=== PATIENT | female | born 1955 | race Caucasian/White ===

== ENCOUNTER → 2019-05-21 | Emergency (ER) | payer OTHER, MEDICAID ==
[~2019-05-21] VITALS: Ht 157.5 cm; Wt 59.0 kg
[~2019-05-21] MED LIST: AMAN100C16 PO; DEUT12TA PO; DIPHENHYDRAMINE INJ 50 MG/ML VIAL IVP ONE; DIPHENHYDRAMINE INJ 50 MG/ML VIAL ONE; DIVA250T34 PO; LORazepam 2 MG/ML VIAL IVP ONE; NACL 0.9% 1,000 ML IV ONE; SENN-104 PO
[2019-05-21 12:38] VITALS: BP_SYST 115
--- NOTE | 2019-05-21 12:40 | NUR ---
PATIENT TO ER #6
--- NOTE | 2019-05-21 12:48 | NUR ---
Pt presents ED with caregiver c/o increased ALOC with history of Berenice's Breanne.
--- NOTE | 2019-05-21 13:10 | NUR ---
Patient presents to ER C/O ALOC Patient A&Ox4, aBIB daughter to ER via wheelchair, afebrile, skin pink and warm, denies N/V/D, denies pain. PT BIB by daughter with c/o ALOC and increase in falls, "x4 in last 6 weeks" hx of Hughes-Madsen.
[2019-05-21 13:24] LABS: BASOPHILS # (AUTO) 0.1 K/uL (0.0-0.2); EOSINOPHILS # (AUTO) 0.1 K/uL (0.0-0.4); EOSINOPHILS % (AUTO) 1.2 % (0.0-4.0); HEMATOCRIT 36.6 % (36-48); HEMOGLOBIN 12.4 g/dL (12.0-16.0); LYMPHOCYTES # (AUTO) 0.9 K/uL (1.0-5.5); LYMPHOCYTES % (AUTO) 11.3 % (20.5-51.5); MEAN CORPUSCULAR HEMOGLOBIN 33 pg (27-31); MEAN CORPUSCULAR HGB CONC 34 % (32-36); MEAN CORPUSCULAR VOLUME 97 fL (79.0-98.0); MONOCYTES % (AUTO) 12.2 % (1.7-9.3); NEUTROPHILS # (AUTO) 5.8 K/uL (1.8-7.7); NEUTROPHILS % (AUTO) 74.3 % (40.0-70.0); PLATELET COUNT (AUTO) 291 K/uL (130-430); RED BLOOD CELL COUNT(AUTO) 3.78 MIL/uL (4.2-6.2); RED CELL DISTRIBUTION WIDTH 13.1 % (9.0-15.0); WHITE BLOOD COUNT (AUTO) 7.9 K/uL (4.8-10.8)
[2019-05-21 13:26] LABS: CALCIUM 8.4 mg/dL (8.4-11.0); CREATININE 0.63 mg/dL (0.55-1.30); POTASSIUM 3.8 mmol/L (3.5-5.1)
[2019-05-21 13:45] LABS: ALBUMIN 3.1 g/dL (3.4-4.8); TOTAL BILIRUBIN 0.3 mg/dL (0.0-1.0)
--- NOTE | 2019-05-21 14:40 | NUR ---
PT to CT with staff via katrin
--- NOTE | 2019-05-21 14:45 | NUR ---
# 16 FR In and Out catheter with use of sterile technique. Immediate return of 30 ml pale urine noted. Urine sample collected and sent to lab. Pt tolerated procedure . Patient unable to toilet self.
[2019-05-21 15:09] LABS: BILIRUBIN,URINE NEGATIVE (NEGATIVE); BLOOD, URINE 1+ (NEGATIVE); CLARITY/URINE CLEAR (CLEAR); COLOR,URINE YELLOW (YELLOW); GLUCOSE,URINE NEGATIVE (NEGATIVE); KETONES,URINE NEGATIVE (NEGATIVE); LEUKOCYTE ESTERASE ,URINE NEGATIVE (NEGATIVE); NITRITE, URINE NEGATIVE (NEGATIVE); PH,URINE 7.5 (5.0-8.0); PROTEIN URINE NEGATIVE (NEGATIVE); UROBILINOGEN,URINE 0.2 (0.2-1.0)
[2019-05-21 15:25] LABS: BACTERIA,URINE None Seen /HPF (None Seen); WBC,URINE NONE SEEN /HPF (0-3)
[2019-05-21 15:26] LABS: MUCUS,URINE None Seen /LPF (None Seen)
[2019-05-21 15:30] VITALS: BP_SYST 118
== END | disposition still patient (30) ==
LOC: SED 12:24
DX: G10 Huntington's disease (principal); R41.82 Altered mental status, unspecified; Z79.899 Other long term (current) drug therapy
CPT/HCPCS: 36415; 70450; 71045; 72125; 80053; 81000; 83605; 85025; 87040; 96361; 96374; 96375; 99285; J1200; J2060; J7030

== ENCOUNTER 2019-05-22 06:38 | Inpatient (IN) | payer OTHER, MEDICAID ==
[~2019-05-22] VITALS: Ht 157.5 cm; Wt 59.0 kg
[~2019-05-22 06:38] MED LIST changes: -DIPHENHYDRAMINE INJ 50 MG/ML VIAL IVP ONE; -DIPHENHYDRAMINE INJ 50 MG/ML VIAL ONE; -LORazepam 2 MG/ML VIAL IVP ONE; -NACL 0.9% 1,000 ML IV ONE
[2019-05-22 06:43] VITALS: BP_SYST 121
--- NOTE | 2019-05-22 06:46 | NUR ---
Patient triaged and placed on EMS gurney. VSS and patient appears in no acute distress at this time. Accompanied by ems, awaiting available bed, and MD notified of need for MSE.
--- NOTE | 2019-05-22 07:03 | NUR ---
Patient to ER bed 07 for evaluation. Side rails up.
[2019-05-22] MEDS ORDERED: DIPHENHYDRAMINE INJ 50 MG/ML VIAL IM ONE (07:30)
[2019-05-22] MEDS ORDERED: HALOPERIDOL LACTATE 5 MG/ML VIAL IM ONE (07:30)
[2019-05-22] MEDS ORDERED: LORazepam 2 MG/ML VIAL IM ONE (07:30)
--- NOTE | 2019-05-22 08:00 | NUR ---
PT AGITATED ATTEMPTING TO CLIMB OUT OF BED AND FIGHT STAFF. PT WAS GIVEN MEDICATION FOR SAFETY.
[2019-05-22 08:39] LABS: BASOPHILS # (AUTO) 0.1 K/uL (0.0-0.2); BASOPHILS % (AUTO) 0.7 % (0.0-2.0); EOSINOPHILS # (AUTO) 0.1 K/uL (0.0-0.4); EOSINOPHILS % (AUTO) 1.5 % (0.0-4.0); HEMATOCRIT 40.5 % (36-48); HEMOGLOBIN 13.5 g/dL (12.0-16.0); LYMPHOCYTES # (AUTO) 1.2 K/uL (1.0-5.5); LYMPHOCYTES % (AUTO) 15.9 % (20.5-51.5); MEAN CORPUSCULAR HEMOGLOBIN 32 pg (27-31); MEAN CORPUSCULAR HGB CONC 33 % (32-36); MEAN CORPUSCULAR VOLUME 97 fL (79.0-98.0); MONOCYTES # (AUTO) 0.9 K/uL (0.0-1.0); MONOCYTES % (AUTO) 11.5 % (1.7-9.3); NEUTROPHILS # (AUTO) 5.5 K/uL (1.8-7.7); NEUTROPHILS % (AUTO) 70.4 % (40.0-70.0); PLATELET COUNT (AUTO) 275 K/uL (130-430); RED BLOOD CELL COUNT(AUTO) 4.18 MIL/uL (4.2-6.2); RED CELL DISTRIBUTION WIDTH 12.7 % (9.0-15.0); WHITE BLOOD COUNT (AUTO) 7.8 K/uL (4.8-10.8)
[2019-05-22 08:46] LABS: CALCIUM 8.4 mg/dL (8.4-11.0); CREATININE 0.46 mg/dL (0.55-1.30); POTASSIUM 3.5 mmol/L (3.5-5.1)
[2019-05-22 08:51] LABS: ALBUMIN 3.2 g/dL (3.4-4.8)
[2019-05-22] MEDS ORDERED: MUPIROCIN 2% TOPICAL OINTMENT 22 GM NS PRN (09:00)
[2019-05-22] MEDS ORDERED: ZOLPIDEM TARTRATE 5 MG TABLET PO PRN (09:00)
[2019-05-22] MEDS ORDERED: HEPARIN SODIUM,PORCINE 5000 UNITS/ML VIAL SUBCUT ONE (09:00)
[2019-05-22] MEDS ORDERED: DOCUSATE SODIUM 100 MG CAPSULE PO PRN (09:00)
[2019-05-22] MEDS ORDERED: MORPHINE 2 MG/ML INJ. SYRINGE IVP PRN ×2 (09:00)
[2019-05-22] MEDS ORDERED: DIVALPROEX SODIUM 250 MG TABLET(DEPAKOTE) PO ONE (09:00)
[2019-05-22] MEDS ORDERED: POTASSIUM CHLORIDE 20 MEQ TAB.PRT.SR PO PRN (09:00)
[2019-05-22] MEDS ORDERED: MAGNESIUM SULFATE 50 ML IV PRN (09:00)
[2019-05-22] MEDS ORDERED: ACETAMINOPHEN 325 MG TABLET PO PRN (09:00)
[2019-05-22] MEDS ORDERED: ONDANSETRON HCL 4 MG/2 ML VIAL IVP PRN (09:00)
[2019-05-22] MEDS ORDERED: DIPHENHYDRAMINE INJ 50 MG/ML VIAL IVP PRN (09:30)
--- NOTE | 2019-05-22 10:00 | NUR ---
PT RESTING IN BED CALM AND COOPERATIVE AT THIS TIME. VSS NO DISTRESS NOTED.
--- NOTE | 2019-05-22 10:58 | NUR ---
Consultation Paged Reason for Consultation: PSYCHOSIS AFTER AMNATADINE, HS OF HUNTINGTONS'S DISEASE Was consult called: Y Person who was notified: MAHESH/DR MORTON Consulting Physician: DR Shawn MORTON Engine Research Engineer Phone Number [phone] Ordering Physician: DR GARAY
--- NOTE | 2019-05-22 11:15 | NUR ---
ADMISSION NOTE Received patient from ER via katrin, received report from Billy HOYOS. Patient admitted with diagnosis of acute psychosis. Patient oriented to hospital routine, call light, toileting and safety-patient verbalized understanding.
--- NOTE | 2019-05-22 11:20 | NUR ---
Patient will be admitted to care of [facility]. Admitted to TELE unit. Will go to room 121B. Belongings list completed. Complete and up to date summary report printed. SBAR report to be given at bedside with opportunity for questions.
--- NOTE | 2019-05-22 11:30 | NUR ---
INITIAL NOTE Patient resting in the bed. No acute distress. Lethargic at this time but arousable.Skin warm and dry to touch. IV intact to LFA, no redness, no swelling, patent. Daughter at bedside to provide the patient's information. Sitter at bedside. Safety measure maintained. Call light within reached. Bed locked in low position, side rails up, bed alarm on. Will continue to monitor.
[2019-05-22 11:43] VITALS: BP_SYST 113
[2019-05-22 12:00] VITALS: BP_SYST 113
[2019-05-22] MEDS: NACL 0.9% 1,000 ML IV SCH ×2 (12:27→21:14)
--- NOTE | 2019-05-22 12:45 | NUR ---
REFUSED HEPARIN Patient sleeping at this time. Daughter at bedside. Refused Heparin, explained the indication and possible side effect, verbally understanding. Per daughter the patient had multiple falls in the past due to unsteady gait and do not want the patient has the risk for bleeding and bruising. Will continue to monitor.
--- NOTE | 2019-05-22 14:12 | NUR ---
CONSULTATION PAGED/CALLED Reason for Consultation: [] PSYCHOSIS Person Who was Notified: [] ERNST Consulting Physician: [] DR VALE Molding Technician Specialty: [] PSYCH Ordering Physician: [] DR GARAY BROOMMAKER FOR DR RANGEL
--- NOTE | 2019-05-22 14:45 | NUR ---
SLEEPING Patient remained sleeping. No acute distress. IV intact, IVF infusing well. Safety measure maintained. Call light within reached. Bed locked in low position, side rails up, bed alarm on. Sitter at bedside. Continue to monitor.
[2019-05-22 16:00] VITALS: BP_SYST 106
--- NOTE | 2019-05-22 16:30 | NUR ---
BATHROOM Sitter and patient's son assisted patient to get up and ambulated to bathroom. Patient ambulated with unsteady gait. Void with yellow urine, no hematuria/dysuria noted. Assisted bed to bed. Safety measure maintained. Call light within reached. Bed locked in low position, side rails up, bed alarm on. Sitter continue to sit at bedside.
--- NOTE | 2019-05-22 18:00 | NUR ---
HOME MED AUSJACQUELINE BROUGHT BY FAMILY, SENT TO PHARMACY TO VERIFY IT.
--- NOTE | 2019-05-22 18:50 | NUR ---
CLOSING NOTE Patient resting in the bed with eye closing. No acute distress. IV intact, no redness, no swelling, no drainage. On NS at 70ml/hr, infusing well. Sitter at bedside. Safety measure maintained. Call light within reached. Bed locked in low position, side rails up, bed alarm on. Will endorse to night nurse.
[2019-05-22 20:00] VITALS: BP_SYST 147
[2019-05-22] MEDS: HEPARIN SODIUM,PORCINE 5000 UNITS/ML VIAL SUBCUT SCH (21:00)
[2019-05-22] MEDS: DIVALPROEX SODIUM 250 MG TABLET(DEPAKOTE) PO SCH (21:12)
--- NOTE | 2019-05-22 22:23 | NUR ---
PATIENT RESTING AT THIS TIME. TURNED REPOSITIONED Q2. NO ACUTE DISTRESS NOTED. WILL CONTINUE TO MONITOR.
[2019-05-23] MEDS: LORazepam 2 MG/ML VIAL IVP PRN (04:21)
--- NOTE | 2019-05-23 06:14 | NUR ---
DR. LEWIS HERE TO SEE THE PATIENT. ATIVAN GIVEN FOR AGITATION. SLEPT MOST OF THE NIGHT. WILL CONTINUE TO MONITOR.
[2019-05-23 07:24] VITALS: BP_SYST 134
--- NOTE | 2019-05-23 07:30 | NUR ---
OPENING NOTES: RECEIVED PATIENT FROM INSIDE CONTRACTOR SALES NURSE. PATIENT IS ASLEEP LAYING DOWN IN BED. SITTER AT BEDSIDE. PATIENT IS TOLERATING OXYGEN AT ROOM AIR WITH NO SIGNS OF DISTRESS OR SHORTNESS OF BREATH NOTED. IV SITE IS PATENT WITH NO SIGNS OF INFILTRATION AND RUNNING FLUIDS ORDERED. PATIENT IN STABLE CONDITION. SAFETY, FALL, AND ASPIRATION PRECAUTIONS ARE IN PLACE. BED LOCKED IN LOWEST POSITION WITH CALL LIGHT IN REACH. WILL CONTINUE TO MONITOR PATIENT FOR ANY CHANGES.
[2019-05-23] MEDS: HEPARIN SODIUM,PORCINE 5000 UNITS/ML VIAL SUBCUT SCH ×2 (09:00→21:00)
[2019-05-23] MEDS: DIVALPROEX SODIUM 250 MG TABLET(DEPAKOTE) PO SCH ×2 (09:19→21:28)
[2019-05-23] MEDS: ARIPiprazole 2 MG TAB PO SCH (09:19)
--- NOTE | 2019-05-23 10:00 | NUR ---
MD ROUNDS: DR. RANGEL MAKING HIS ROUNDS. AWARE OF PATIENT'S CONDITION. NEW ORDERS GIVEN.
--- NOTE | 2019-05-23 10:08 | NUR ---
RN ROUNDS: PATIENT IS AWAKE AND ALERT x1 LAYING DOWN IN BED. FAMILY AT BEDSIDE. PATIENT DENIES ANY PAIN AT THE MOMENT. NO SIGNS OF DISTRESS OR SHORTNESS OF BREATH NOTED. PATIENT IN STABLE CONDITION. EDUCATION REGARDING PATIENT'S MEDICATIONS WAS GIVEN TO FAMILY MEMBER. WILL CONTINUE TO MONITOR PATIENT FOR ANY CHANGES.
--- NOTE | 2019-05-23 10:13 | NUR ---
Nutrition Update Chinmay Scale 13 noted. Pt admitted for acute psychosis. Diet: regular BMI: 23.8 kg/m2 RD to follow per nutrition care standards.
[2019-05-23] MEDS: NACL 0.9% 1,000 ML IV SCH (11:16)
[2019-05-23 11:19] VITALS: BP_SYST 118
[2019-05-23 12:09] LABS: BASOPHILS % (AUTO) 0.6 % (0.0-2.0); EOSINOPHILS # (AUTO) 0.3 K/uL (0.0-0.4); HEMATOCRIT 41.3 % (36-48); HEMOGLOBIN 13.7 g/dL (12.0-16.0); LYMPHOCYTES # (AUTO) 1.5 K/uL (1.0-5.5); LYMPHOCYTES % (AUTO) 22.1 % (20.5-51.5); MEAN CORPUSCULAR HEMOGLOBIN 32 pg (27-31); MEAN CORPUSCULAR HGB CONC 33 % (32-36); MEAN CORPUSCULAR VOLUME 97 fL (79.0-98.0); MONOCYTES # (AUTO) 0.7 K/uL (0.0-1.0); MONOCYTES % (AUTO) 9.7 % (1.7-9.3); NEUTROPHILS # (AUTO) 4.3 K/uL (1.8-7.7); NEUTROPHILS % (AUTO) 62.6 % (40.0-70.0); PLATELET COUNT (AUTO) 281 K/uL (130-430); RED BLOOD CELL COUNT(AUTO) 4.24 MIL/uL (4.2-6.2); RED CELL DISTRIBUTION WIDTH 12.6 % (9.0-15.0); WHITE BLOOD COUNT (AUTO) 6.9 K/uL (4.8-10.8)
[2019-05-23 12:14] LABS: CREATININE 0.48 mg/dL (0.55-1.30); PHOSPHORUS 3.8 mg/dL (2.7-4.5); POTASSIUM 3.5 mmol/L (3.5-5.1)
--- NOTE | 2019-05-23 12:17 | NUR ---
RN ROUNDS: PATIENT IS AWAKE AND ALERT x1 LAYING DOWN IN BED. FAMILY AT BEDSIDE. SITTER AT BEDSIDE. NO SIGNS OF DISTRESS OR SHORTNESS OF BREATH NOTED. PATIENT IN STABLE CONDITION. WILL CONTINUE TO MONITOR PATIENT FOR ANY CHANGES.
--- NOTE | 2019-05-23 14:37 | NUR ---
RN ROUNDS: PATIENT IS ASLEEP LAYING DOWN IN BED. SITTER AND FAMILY AT BEDSIDE. NO SIGNS OF DISTRESS OR SHORTNESS OF BREATH NOTED. PATIENT IN STABLE CONDITION. WILL CONTINUE TO MONITOR PATIENT FOR ANY CHANGES.
--- NOTE | 2019-05-23 15:58 | NUR ---
Electrical Linesworker: met with pt to conduct a DCPA and Social Work assessment. FUNERAL DIRECTOR/EMBALMER introduced self to pts. daughter who was visiting with her mom. said her mom was sleeping and was happy to answer questions for FUNERAL DIRECTOR/EMBALMER. 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 She also said she wants her mom/pt to return back to her B&C, [facility]. It is a B&C but they also have hospice. Daughter stated she made sure the B&C knows her mom is not a hospice pt. She stated her mom feels anxious because of her illness. It makes her mom feel like she is dying from her illness because she is so sick. FUNERAL DIRECTOR/EMBALMER thanked for her assistance and will remain available as needed.
[2019-05-23 16:14] VITALS: BP_SYST 157
--- NOTE | 2019-05-23 16:20 | NUR ---
RN ROUNDS: PATIENT IS AWAKE AND ALERT x1 LAYING DOWN IN BED. SITTER AND FAMILY AT BEDSIDE. NO SIGNS OF DISTRESS OR SHORTNESS OF BREATH NOTED. PATIENT IN STABLE CONDITION. WILL CONTINUE TO MONITOR PATIENT FOR ANY CHANGES.
--- NOTE | 2019-05-23 18:40 | NUR ---
CLOSING NOTES: PATIENT IS AWAKE AND ALERT x1 LAYING DOWN IN BED. SITTER AT BEDSIDE. PATIENT IS TOLERATING OXYGEN AT ROOM AIR WITH NO SIGNS OF DISTRESS OR SHORTNESS OF BREATH NOTED. IV SITE IS PATENT WITH NO SIGNS OF INFILTRATION AND RUNNING FLUIDS ORDERED. PATIENT IN STABLE CONDITION. SAFETY, FALL, AND ASPIRATION PRECAUTIONS REMAINED IN PLACE THROUGHOUT THE SHIFT. BED LOCKED IN LOWEST POSITION WITH CALL LIGHT IN REACH. WILL ENDORSE PATIENT CARE TO ONCOMING MANAGER DISTRIBUTION CENTER NURSE.
[2019-05-23 20:00] VITALS: BP_SYST 106
--- NOTE | 2019-05-23 23:24 | NUR ---
PATIENT IN BED. TURNED REPOSITIONED Q2. NO ACUTE DISTRESS NOTED. COMPLIANT WITH MEDICATIONS. WILL CONTINUE TO MONITOR.
[2019-05-24] MEDS: LORazepam 2 MG/ML VIAL IVP PRN ×4 (00:38→21:59)
--- NOTE | 2019-05-24 00:43 | NUR ---
PATIENT ANXIOUS PRN GIVEN PER PHYSICIAN'S ORDER. WILL CONTINUE TO MONITOR.
[2019-05-24] MEDS: NACL 0.9% 1,000 ML IV SCH ×2 (03:54→18:51)
[2019-05-24 06:40] LABS: CALCIUM 7.9 mg/dL (8.4-11.0); CREATININE 0.36 mg/dL (0.55-1.30); PHOSPHORUS 2.8 mg/dL (2.7-4.5); POTASSIUM 3.3 mmol/L (3.5-5.1)
[2019-05-24 06:41] LABS: BASOPHILS # (AUTO) 0.1 K/uL (0.0-0.2); BASOPHILS % (AUTO) 0.6 % (0.0-2.0); EOSINOPHILS # (AUTO) 0.2 K/uL (0.0-0.4); EOSINOPHILS % (AUTO) 2.4 % (0.0-4.0); HEMATOCRIT 39.1 % (36-48); HEMOGLOBIN 13.4 g/dL (12.0-16.0); LYMPHOCYTES # (AUTO) 0.9 K/uL (1.0-5.5); LYMPHOCYTES % (AUTO) 10.4 % (20.5-51.5); MEAN CORPUSCULAR HEMOGLOBIN 33 pg (27-31); MEAN CORPUSCULAR HGB CONC 34 % (32-36); MEAN CORPUSCULAR VOLUME 97 fL (79.0-98.0); MONOCYTES # (AUTO) 0.6 K/uL (0.0-1.0); NEUTROPHILS # (AUTO) 6.7 K/uL (1.8-7.7); NEUTROPHILS % (AUTO) 79.6 % (40.0-70.0); PLATELET COUNT (AUTO) 276 K/uL (130-430); RED BLOOD CELL COUNT(AUTO) 4.05 MIL/uL (4.2-6.2); RED CELL DISTRIBUTION WIDTH 12.7 % (9.0-15.0); WHITE BLOOD COUNT (AUTO) 8.4 K/uL (4.8-10.8)
--- NOTE | 2019-05-24 06:56 | NUR ---
PATIENT AGITATED AND ATTEMPTING TO GET OUT OF BED. PRN GIVEN.
--- NOTE | 2019-05-24 07:30 | NUR ---
OPENING NOTES: Patient resting in bed. No acute respiration distress noted. No shortness of breath noted. I.V site is patent without signs of infiltration. Running 0.9% normal saline as ordered. place call light within reach and bed in the lowest position. Will continue to monitor. Addendum: 05/24/19 at 1831 by Cyrus Calvin RN sitter at the bed side.
[2019-05-24 07:35] VITALS: BP_SYST 141
[2019-05-24] MEDS: HEPARIN SODIUM,PORCINE 5000 UNITS/ML VIAL SUBCUT SCH ×2 (09:00→20:05)
[2019-05-24] MEDS: ARIPiprazole 2 MG TAB PO SCH (09:24)
[2019-05-24] MEDS: DIVALPROEX SODIUM 250 MG TABLET(DEPAKOTE) PO SCH ×2 (09:24→21:50)
--- NOTE | 2019-05-24 10:20 | NUR ---
Dc Telemetry: Dc telemetry and downgraded patient to medical surgical floor as ordered.
[2019-05-24 12:00] VITALS: BP_SYST 138
--- NOTE | 2019-05-24 12:30 | NUR ---
Lunch Daughter assisted patient to have lunch. Patient ate lunch well.
--- NOTE | 2019-05-24 14:30 | NUR ---
Bedside Commode placed patient to bedside commode with daughter assisting. void and had bowel movement. Care rendered.
--- NOTE | 2019-05-24 15:09 | NUR ---
Dietitian Recommendations * Recommend regular diet w/ Ensure Enlive TID (ONS provides 1050 kcal/day, 60 gm protein/day) ANDREW FERREIRA Please refer to Nutrition Assessment for details. Addendum: 05/24/19 at [address] Amended: Links added.
[2019-05-24 16:30] VITALS: BP_SYST 119
--- NOTE | 2019-05-24 18:36 | NUR ---
CLOSING NOTE Patient sleeping in bed. Daughter at the bedside. Call light within reach and placed bed in the lowest position. Put bed alarm on. Normal saline is running with tolerant well. I.V site is intact without infiltration. Safety measure rendered. No acute respiratory distress noted.
--- NOTE | 2019-05-24 18:40 | NUR ---
ADD NOTES Talked with daughter and she requested that to try taking a sample when patient uses commode at the bed side. Daughter talked that if not successful, try to use straight catheter.
--- NOTE | 2019-05-24 19:09 | NUR ---
received with daughter at bedside and asleep with no distress,with the same ivf on, on close observation 1 to 1.
--- NOTE | 2019-05-24 19:18 | NUR ---
daughter asked about the heparin dose as the day shift nurse report that the daughter refused heparin and said no heparin because mom has history of frequent falls and will inform the physician. asked if it ius okay for sequentials and said okay as alternative to heparin. with orders for urinalysis and okay to do straight catheterization but said try the bedside commode first and or offer bedpan before the Straight catheterization and if ever straight catheterization done needs some medication tomake her sleep. noted.
--- NOTE | 2019-05-24 19:34 | NUR ---
voided,offered bedpan but unable to ,.voided freely.to the diaper, cleaned and kept dry.
[2019-05-24 20:03] VITALS: BP_SYST 103
--- NOTE | 2019-05-24 20:06 | NUR ---
heparin not given pre daughters and family request, sleeping intermittently.will inform Dr Chowdhury in am and ask for alternative dvt prophylaxis ,
--- NOTE | 2019-05-24 21:28 | NUR ---
asleep.,medication not given ,will wait for her to be awake,
--- NOTE | 2019-05-24 21:50 | NUR ---
awake and wants to go to the bathroom and noted patient combative,.hitting and refused to follow instruction. assited to the bedside commode with difficulty as patient s tries to push and hits. able to place on the bedside commode and voided freely. assited back to bed. medications po due given and tolerated well. lorazepam dose given as patient is getting agitated and attempting to get out of bet, hitting and unable to follow instructions,. vital signs ck=hecked and recorded.kept cleaned and dry
[2019-05-24 22:00] VITALS: BP_SYST 127
--- NOTE | 2019-05-24 22:23 | NUR ---
on one on one sitter
--- NOTE | 2019-05-24 22:55 | NUR ---
asleep. with the same ivf on.
[2019-05-24 23:33] VITALS: BP_SYST 133
[2019-05-25 00:42] VITALS: BP_SYST 127
--- NOTE | 2019-05-25 01:28 | NUR ---
awake and cleaned and kept dry. Addendum: 05/25/19 at 0130 by Twenty six ornamental metal erector will continue to monitor Addendum: 05/25/19 at 0155 by Twenty six ornamental metal erector back to sleep
--- NOTE | 2019-05-25 03:33 | NUR ---
asleep and wake up and is restless and unable to keep still.
[2019-05-25] MEDS: LORazepam 2 MG/ML VIAL IVP PRN (03:40)
[2019-05-25 04:00] VITALS: BP_SYST 133
--- NOTE | 2019-05-25 04:23 | NUR ---
patient is restless and attempts to get out of bed ,goes aroubnd the bed and unable to follow limits or instructions. vital signs checked ,lorazepam 2 mg ivp given for restlessness and agitation, placed on oxygen at 2liters as patient is receiving a high dose of lorazepam,will infom physician in am.
--- NOTE | 2019-05-25 07:20 | NUR ---
OPENING NOTES: Patient resting in bed. Sitter is at bedside. Running 2L of O2 through nasal canula. I.V site is patent without signs of infiltration. Running 0.9% normal saline as ordered. No shortness of breath noted or acute respiration distress noted. Place call light within reach and bed in the lowest position. Will continue to monitor.
[2019-05-25 07:35] VITALS: BP_SYST 138
[2019-05-25 07:57] LABS: CALCIUM 7.8 mg/dL (8.4-11.0); CREATININE 0.44 mg/dL (0.55-1.30)
--- NOTE | 2019-05-25 08:28 | NUR ---
report given to the day shift rn that the patient was placed on oxygen at 2l nasal cannula because when given lorazepam dose the breathing becomes less that 16 and shallow. patient breathing return to normal after
--- NOTE | 2019-05-25 09:00 | NUR ---
Rounds Daughter came and assisted patient to have breakfast. Patient was not able to have breakfast at this time.
[2019-05-25] MEDS: ARIPiprazole 2 MG TAB PO SCH (09:17)
[2019-05-25] MEDS: DIVALPROEX SODIUM 250 MG TABLET(DEPAKOTE) PO SCH (09:17)
[2019-05-25] MEDS ORDERED: LORazepam 2 MG/ML VIAL IVP PRN (09:45)
[2019-05-25] MEDS: NACL 0.9% 1,000 ML IV SCH (09:48)
[2019-05-25 10:02] LABS: BILIRUBIN,URINE NEGATIVE (NEGATIVE); CLARITY/URINE CLEAR (CLEAR); COLOR,URINE YELLOW (YELLOW); GLUCOSE,URINE NEGATIVE (NEGATIVE); KETONES,URINE NEGATIVE (NEGATIVE); LEUKOCYTE ESTERASE ,URINE NEGATIVE (NEGATIVE); NITRITE, URINE NEGATIVE (NEGATIVE); PH,URINE 8.5 (5.0-8.0); PROTEIN URINE NEGATIVE (NEGATIVE); UROBILINOGEN,URINE 0.2 (0.2-1.0)
[2019-05-25 10:03] LABS: BLOOD, URINE TRACE (NEGATIVE)
[2019-05-25 10:08] LABS: BACTERIA,URINE FEW /HPF (None Seen); RBC,URINE 0-3 /HPF (0-3); TRIPLE PHOSPHATE CRYSTAL,UR 0-10 /HPF (None Seen); WBC,URINE 0-3 /HPF (0-3)
[2019-05-25] MEDS ORDERED: ARIP2TAB3 PO (10:09)
--- NOTE | 2019-05-25 10:14 | NUR ---
MD ROUNDS Dr. Pacheco came for rounds and spoke with daughter at bedside regarding plan of care with orders DC back to [facility] as ordered. Ashley, interstate planner aware of discharge plan.
--- NOTE | 2019-05-25 11:24 | NUR ---
Discharge Planning I was notified that patient could return to her board and care. Spoke with patient's daughter, . She will transport patient back to [facility] and is available any time. Nurse to call when discharge paperwork ready. Contact for [facility]: Veronica Rodgersquis francisco javier [phone] f [phone]. Left a voicemail message. Addendum: 05/25/19 at 1314 by Ashley Hutchison LCSW Spoke with Precious HOYOS. Patient is very drowsy and unsafe to transport via car or wheelchair. She will get an order from for ambulance transport. Faxed patient's med rec discharge to Veronica at [facility]. Addendum: 05/25/19 at 1400 by Ashley Hutchison LCSW Received order to transfer patient by ambulance for patient safety. Phoned Precious HOYOS. Transfer okay for 16:00. Phoned daughter, , and notified her of ambulance transfer. Agreed. As per , address of board and care is: [place], [address]. Left voicemail for [facility] nursing administrator, Veronica, regarding transfer at 16:00. [facility], , for 16:00.
[2019-05-25] MEDS ORDERED: LORA-259 PO (11:38)
[2019-05-25 12:00] VITALS: BP_SYST 124
[2019-05-25 15:13] VITALS: BP_SYST 158
--- NOTE | 2019-05-25 16:31 | NUR ---
DC Patient transported back to [facility] and care. Got signs from daughter on discharge paper and gave discharge paper to staff of [facility] ambulance service. Precious spoke with Aracely Streeter, RN trust administrator at [facility]. Patient was transferred by [facility] due to unsafe to transport via car or wheelchair. Patient is in stable condition during transportation.
--- NOTE | 2019-05-25 17:05 | NUR ---
HOME MEDS Patient's daughter will machine operator hop picker her mother's medication.
--- NOTE | 2019-05-25 18:10 | NUR ---
Home medication given to Raisa, patient's daughter.
--- NOTE | 2019-05-29 11:38 | NUR ---
Discharge Follow Up Phone Call Product Support Sales Representative phoned and left a voicemail message on 05/28/19. EMERGENCY TECHNICIAN phoned patient's daughter, Patsy, , today. Patient is doing well at her board and care, other than she began coughing. They filled her new prescriptions and patient is taking her medications as directed. She has a follow up appointment made with neurologist, Dr Powell. No questions or concerns.
== END 2019-05-25 16:31 | disposition home or self-care (01) | DRG 56 ==
LOC: SED 06:38 → SMU 08:55 → STU 11:17 → SMU 05-24 13:11
PROVIDERS: ADMIT General Practice; ATTEND General Practice
DX: G10 Huntington's disease (principal); G92 Toxic encephalopathy; F23 Brief psychotic disorder; E44.1 Mild protein-calorie malnutrition; G20 Parkinson's disease; R26.9 Unspecified abnormalities of gait and mobility; Z90.49 Acquired absence of other specified parts of digestive tract; T42.8X5A Adverse effect of antiparkinsonism drugs and other central muscle-tone depressants, initial encounter; Z79.899 Other long term (current) drug therapy; Y92.89 Other specified places as the place of occurrence of the external cause; Z68.23 Body mass index [BMI] 23.0-23.9, adult
CPT/HCPCS: 36415; 80048; 80053; 80164-TC; 81000-TC; 83735-TC; 84100-TC; 85025; 96372; 97112-GP; 97530-GP; 99285; A5061; G0378; J1200; J1630; J1644; J2060; J2270; J3475; J7030

== ENCOUNTER 2019-06-24 19:03 | Emergency (ER) | payer OTHER, MEDICAID ==
[~2019-06-24] VITALS: Ht 162.6 cm; Wt 59.0 kg
[~2019-06-24 19:03] MED LIST changes: -AMAN100C16 PO; +ARIP2TAB3 PO; +LORA-259 PO
--- NOTE | 2019-06-24 19:20 | NUR ---
Patient brought in by daughter from an assisted living facility. Patient fell off her bed at the assisted living facility and hit her left cheek. Patients left cheek is swollen. Patient is togolese speaking. Patient has a history of subarachnoid hematomas and huntingtons disease. Patients baseline is alert and oriented x2.
[2019-06-24 19:37] VITALS: BP_SYST 105
--- NOTE | 2019-06-24 19:43 | NUR ---
ER Dr. Turk at bedside examining patient.
--- NOTE | 2019-06-24 20:03 | NUR ---
# 20 gauge angiocath placed to LAC. Use of asceptic technique. Opsite placed over site. Blood return noted. Blood for lab drawn from site. Flushed with 10 cc of normal saline. No evidence of infiltration noted. Patient tolerated well.
[2019-06-24 20:12] LABS: BASOPHILS % (AUTO) 0.6 % (0.0-2.0); EOSINOPHILS # (AUTO) 0.1 K/uL (0.0-0.4); EOSINOPHILS % (AUTO) 1.8 % (0.0-4.0); HEMATOCRIT 37.5 % (36-48); HEMOGLOBIN 12.7 g/dL (12.0-16.0); LYMPHOCYTES # (AUTO) 1.9 K/uL (1.0-5.5); LYMPHOCYTES % (AUTO) 25.2 % (20.5-51.5); MEAN CORPUSCULAR HEMOGLOBIN 33 pg (27-31); MEAN CORPUSCULAR HGB CONC 34 % (32-36); MEAN CORPUSCULAR VOLUME 97 fL (79.0-98.0); MONOCYTES # (AUTO) 0.9 K/uL (0.0-1.0); MONOCYTES % (AUTO) 11.7 % (1.7-9.3); NEUTROPHILS # (AUTO) 4.5 K/uL (1.8-7.7); NEUTROPHILS % (AUTO) 60.7 % (40.0-70.0); PLATELET COUNT (AUTO) 269 K/uL (130-430); RED BLOOD CELL COUNT(AUTO) 3.88 MIL/uL (4.2-6.2); RED CELL DISTRIBUTION WIDTH 13.2 % (9.0-15.0); WHITE BLOOD COUNT (AUTO) 7.4 K/uL (4.8-10.8)
[2019-06-24 20:17] LABS: CREATININE 0.51 mg/dL (0.55-1.30); POTASSIUM 4.1 mmol/L (3.5-5.1)
[2019-06-24 20:22] LABS: ALBUMIN 3.1 g/dL (3.4-4.8); TOTAL BILIRUBIN 0.2 mg/dL (0.0-1.0)
[2019-06-24 20:26] LABS: BILIRUBIN,URINE NEGATIVE (NEGATIVE); BLOOD, URINE 1+ (NEGATIVE); CLARITY/URINE CLEAR (CLEAR); COLOR,URINE YELLOW (YELLOW); GLUCOSE,URINE NEGATIVE (NEGATIVE); KETONES,URINE NEGATIVE (NEGATIVE); LEUKOCYTE ESTERASE ,URINE TRACE (NEGATIVE); NITRITE, URINE NEGATIVE (NEGATIVE); PH,URINE 6.5 (5.0-8.0); PROTEIN URINE NEGATIVE (NEGATIVE); UROBILINOGEN,URINE 0.2 (0.2-1.0)
[2019-06-24] MEDS ORDERED: LORazepam 2 MG/ML VIAL IM ONE (20:30)
[2019-06-24 20:54] LABS: BACTERIA,URINE FEW /HPF (None Seen); RBC,URINE 0-3 /HPF (0-3); WBC,URINE 0-3 /HPF (0-3)
[2019-06-24] MEDS ORDERED: LORazepam 2 MG/ML VIAL IVP ONE (21:00)
--- NOTE | 2019-06-24 21:10 | NUR ---
Pt to CT via stretcher in stable condition.
--- NOTE | 2019-06-24 21:25 | NUR ---
Pt returns from CT.
[2019-06-24] MEDS ORDERED: cefTRIAXone 1 GM in D5W 50 ML IV ONE (22:15)
[2019-06-24] MEDS ORDERED: cefTRIAXone 1 GM VIAL ONE (22:34)
[2019-06-24 23:02] VITALS: BP_SYST 135
--- NOTE | 2019-06-24 23:02 | NUR ---
Patient given written and verbal discharge instructions and verbalizes understanding. ER MD discussed with patient the results and treatment provided. Patient in stable condition. ID arm band removed. IV catheter removed intact and dressing applied, no active bleeding. Rx of KEFLEX given. Patient educated on pain management and to follow up with PMD. Pain Scale 0/10. Opportunity for questions provided and answered. Medication side effect fact sheet provided.
== END 2019-06-24 23:02 | disposition home or self-care (01) ==
LOC: SED 19:03
DX: S09.90XA Unspecified injury of head, initial encounter (principal); N39.0 Urinary tract infection, site not specified; I60.9 Nontraumatic subarachnoid hemorrhage, unspecified; Z79.899 Other long term (current) drug therapy; X58.XXXA Exposure to other specified factors, initial encounter; Y93.89 Activity, other specified; Y92.89 Other specified places as the place of occurrence of the external cause; Y99.8 Other external cause status
CPT/HCPCS: 36415; 70450; 80053; 81000; 85025; 96365; 96375; 99284; J0696; J2060

== ENCOUNTER 2019-08-03 19:41 | Emergency (ER) | payer OTHER, MEDICAID ==
[~2019-08-03] VITALS: Ht 160 cm; Wt 54.4 kg
[2019-08-03 19:41] VITALS: BP_SYST 122
--- NOTE | 2019-08-03 19:41 | NUR ---
BROUGHT BACK TO BED #4 VIA WHEELCHAIR, PLACED IN BED #4 AND TRIAGED. REPORT GIVEN TO NERIS
--- NOTE | 2019-08-03 19:53 | NUR ---
ER Dr. Ng at bedside examining patient.
--- NOTE | 2019-08-03 19:58 | NUR ---
Patient was brought in by daughter from [facility] after an unwitnessed fall. Daughter reports patient was walking tothe restroom, turnied the corner and went straight to the ground and hit her head. Patient has a laceration to her forehead. Patient denies loss of consciousness, dizziness, nauseous, blurry vision after fall. Patient is taking austedo 12mg, colace 100mg, depakote 250mg. Patient has a history of huntingtons disease, and subdural hematoma.
[2019-08-03] MEDS ORDERED: LIDOCAINE/EPI 1% 1:100000 20 ML VIAL INJ ONE (20:00)
--- NOTE | 2019-08-03 20:03 | NUR ---
Patient transported to radiology via rney, accompanied by
--- NOTE | 2019-08-03 20:15 | NUR ---
Patient is back from CT. Vital signs stable.
--- NOTE | 2019-08-03 20:46 | NUR ---
Laceration tray set up at beside.
--- NOTE | 2019-08-03 21:30 | NUR ---
Patient has a 3cm cm laceration to forehead. Dr. Ng applied 4 sutures using sterile technique. Edges well approximated. Site cleansed with normal saline. Dressing of nonadherent dressingapplied to site. No bleeding noted. Pt tolerated well.
[2019-08-03] MEDS ORDERED: BACITRACIN 1 GM OINT TP ONE (22:10)
[2019-08-03 22:17] VITALS: BP_SYST 122
--- NOTE | 2019-08-03 22:17 | NUR ---
Patient given written and verbal discharge instructions and verbalizes understanding. ER MD discussed with patient the results and treatment provided. Patient in stable condition. ID arm band removed. No Rx given. Patient educated on pain management and to follow up with PMD. Pain Scale 0/10. Opportunity for questions provided and answered. Medication side effect fact sheet provided.
== END 2019-08-03 22:17 | disposition home or self-care (01) ==
LOC: SED 19:41
DX: S01.81XA Laceration without foreign body of other part of head, initial encounter (principal); Z79.899 Other long term (current) drug therapy; W01.0XXA Fall on same level from slipping, tripping and stumbling without subsequent striking against object, initial encounter; Y93.89 Activity, other specified; Y92.89 Other specified places as the place of occurrence of the external cause; Y99.8 Other external cause status
CPT/HCPCS: 70450-TC; 99284

== ENCOUNTER 2019-08-08 16:14 | Emergency (ER) | payer OTHER, MEDICAID ==
[~2019-08-08] VITALS: Ht 162.6 cm; Wt 54.4 kg
[2019-08-08 16:22] VITALS: BP_SYST 120
--- NOTE | 2019-08-08 16:29 | NUR ---
PATIENT PRESENTS TO THE ER WITH HX OF LACERATION TO MID FRONTAL FIVE DAYS AGO AFTER A FALL INTO A DOOR FRAME WHILE AMBULATING; LACERATION REPAIR WAS DONE AND PATIENT RETURNS FOR SUTURE REMOVAL; NO LOC, NO OTHER TRAUMA, NO OTHER REMARKABLE S/S; PATIENT HAS UNSTEADY GAIT SECONDARY TO CHRONIC CONDITION
[2019-08-08 16:43] VITALS: BP_SYST 120
--- NOTE | 2019-08-08 16:43 | NUR ---
Patient given written and verbal discharge instructions and verbalizes understanding. ER MD discussed with patient the results and treatment provided. Patient in stable condition. ID arm band removed. Opportunity for questions provided and answered. Medication side effect fact sheet provided.
[2019-08-08] MEDS ORDERED: BACITRACIN 1 GM OINT TP ONE (16:57)
== END 2019-08-08 16:43 | disposition home or self-care (01) ==
LOC: SED 16:14
DX: Z48.02 Encounter for removal of sutures (principal); Z79.899 Other long term (current) drug therapy
CPT/HCPCS: 99281